=== PATIENT | female | born 1940 | race Caucasian/White ===

== ENCOUNTER 2022-10-21 08:33 | Outpatient (CLI) | payer OTHER ==
[2022-10-21 08:57] LABS: ABG BASE EXCESS -3.4 mmol/L (-2.0-2.0); ABG HCO3 19.7 mmol/L (22.0-26.0); ABG OXYGEN SATURATION 95.8 % (94-97); ABG PCO2 (T) 30.4 mmHg (32.0-45.0); ABG PO2 (T) 78.3 mmHg (75.0-100.0); ALLEN'S TEST POSITIVE; FCOHb 0.4 % (0.0-3.9); FMetHb 0.2 % (0.0-1.5); FO2Hb 95.2 % (94-97); TOTAL HEMOGLOBIN 14.4 G/dl (12.0-16.0)
== END 2022-10-21 23:59 | disposition home or self-care (01) ==
LOC: RT 08:33
PROVIDERS: ATTEND Internal Medicine Cardiovascular Disease
DX: J68.4 Chronic respiratory conditions due to chemicals, gases, fumes and vapors (principal); R06.02 Shortness of breath; Z79.899 Other long term (current) drug therapy
CPT/HCPCS: 36600; 82803; 85018; 94010; 94727; 94729; J7030